=== PATIENT | male | born 1980 | race Two or more races ===

== ENCOUNTER → 2018-10-20 14:57 | Outpatient (CLI) | payer OTHER, SELFPAY ==
--- NOTE | 2018-10-20 11:15 | MISC_PTH ---
PATIENT: ERIK TROTTER LOC: [facility] U#:[id number] AGE/SX: 45/M ROOM: RE10/20/[address]: Dr. Mandeep Danielle DDS : 1980 BED: DIS: SPEC #: [id number] RECD: 10/20/18 13:46 STATUS: BEN KELVIN #: [id number] JOVANNY: 10/20/18 11:[address]: Mandeep Danielle DEPT: SURGICAL PATHOLOGY RECD BY: Fina Strong Tissues: Soft palate Procedures: Surgery Specimen Level IV HEADER OPERATION: Biopsy soft palate PRE-OP DIAGNOSIS: Papilloma most likely TISSUE SUBMITTED: Soft palate MICROSCOPIC DIAGNOSIS Soft palate, biopsy: A piece of squamous mucosa with underlying minor salivary gland tissue with focal hyperkeratosis. Negative for malignancy. SJ:maykel 10/23/18 COMMENT Clinical correlation and appropriate follow up are necessary. MICROSCOPIC DESCRIPTION Slides are reviewed. GROSS DESCRIPTION Received in fixative is one container labeled with the patient's name and designated palate. The specimen consists of a piece of crabtree soft tissue measuring 0.4 x 0.4 x 0.2 cm. The specimen is totally submitted in one cassette. / SJ:maykel 10/20/18 TC:5 CPT: 30014
== END ==
PROVIDERS: Referring Provider Dentist Oral and Maxillofacial Surgery; Visit Provider Dentist Oral and Maxillofacial Surgery
DX: L85.9 Epidermal thickening, unspecified (principal)
CPT/HCPCS: 88305